=== PATIENT | male | born 1965 ===

== ENCOUNTER 2017-09-29 10:05 | Emergency (ER) | payer MEDICAID, OTHER ==
[2017-09-29 10:18] VITALS: RESP 18; TEMP 97
[2017-09-29] MEDS ORDERED: Naproxen 500 MG TAB PO STA (10:26)
--- NOTE | 2017-09-29 10:58 | ED PDOC ---
HPI: Trauma/Fall - HPI Time Seen by Provider: 09/29/17 10:16 Chief Complaint (Nursing): Trauma Chief Complaint (Provider): Trauma History Per: Patient, EMS History/Exam Limitations: no limitations Onset/Duration Of Symptoms: Hrs (x20) Injury Occurred (Timing): Hours Ago: (20) Additional Complaint(s): 52 y/o male brought to the ED by EMS for evaluation of fall injuries. Patient fell down approximately 20 steps yesterday around 12PM after slipping on cleaning solution. Sustained injury to left eyebrow/frontal region. No loss of consciousness, headaches, shortness of breath, or dizziness. Denies neck pain or back pain. Also sustained injuries to right shoulder, left thigh, left knee , right ankle and foot. PMD: None Past Medical History Reviewed: Historical Data, Nursing Documentation, Vital Signs Vital Signs: Last Vital Signs Temp 97 F L 09/29/17 10:16 Pulse 77 09/29/17 10:16 Resp 18 09/29/17 10:16 BP 129/86 09/29/17 10:16 Pulse Ox 99 09/29/17 10:16 - Medical History PMH: No Chronic Diseases - Surgical History Surgical History: No Surg Hx - Family History Family History: States: Unknown Family Hx - Social History Current smoker - smoking cessation education provided: No Alcohol: None Drugs: Denies - Home Medications Home Medications: Ambulatory Orders Medication Instructions Recorded traMADol [Ultram] 50 mg PO Q8 #10 tab 09/29/17 - Allergies Allergies/Adverse Reactions: Allergies Allergy/AdvReac Type Severity Reaction Status Date / Time Penicillins Allergy RASH Verified 09/29/17 10:16 Review of Systems ROS Statement: Except As Marked, All Systems Reviewed And Found Negative Respiratory: Negative for: Shortness of Breath Musculoskeletal: Positive for: Shoulder Pain (right), Leg Pain (left thigh and knee), Foot Pain (right ankle and foot). Negative for: Neck Pain, Back Pain Neurological: Negative for: Headache, Dizziness, Other (LOC) Physical Exam - Reviewed Nursing Documentation Reviewed: Yes Vital Signs Reviewed: Yes - Physical Exam Appears: Positive for: Non-toxic, No Acute Distress Head Exam: Positive for: NORMOCEPHALIC (with superficial dry laceration above left eyebrow, no palpable fracture). Negative for: ATRAUMATIC Skin: Positive for: Normal Color, Warm, Dry Eye Exam: Positive for: EOMI, Normal appearance, PERRL Neck: Positive for: Normal (with no tenderness or deformity), Painless ROM, Supple Cardiovascular/Chest: Positive for: Regular Rate, Rhythm, Other (chest tenderness to left lower lateral ribs. No ecchymosis or palpable fracture). Negative for: Murmur Respiratory: Positive for: Normal Breath Sounds (with equal breath sounds bilaterally). Negative for: Respiratory Distress Gastrointestinal/Abdominal: Positive for: Normal Exam, Soft. Negative for: Tenderness Back: Positive for: Normal Inspection. Negative for: L CVA Tenderness, R CVA Tenderness, Vertebral Tenderness, Other (deformity) Extremity: Positive for: Normal ROM, Tenderness (right ankle with swelling, tenderness, & ecchymosis at medial malleolus, with tenderness to dorsum of right foot), Other (Right shoulder with ecchymosis anteriorly but full ROM, no deformity. Hips no tenderness or deformity bilaterally. Left femur with small ecchymosis with no tenderness. Right knee with ecchymosis at proximal medial tibia, no deformity or tenderness, full ROM) Neurologic/Psych: Positive for: Alert, Oriented (x3). Negative for: Motor/ Sensory Deficits - ECG O2 Sat by Pulse Oximetry: 99 (RA) Pulse Ox Interpretation: Normal Medical Decision Making Medical Decision Making: Time: 10:26 Initial Plan: --Naproxen 500 mg PO --X-Ray Left Knee --X-Ray Left Ribs & Chest --X-Ray Left Femur --X-Ray Right Foot --X-Ray Right Ankle --X-Ray Right Shoulder --CT Head w/o contrast --Reevaluation X-RAY RESULTS: Time: 11:25 X-Ray Left Knee: FINDINGS: BONES: Normal. No fracture. JOINTS: Normal. No osteoarthritis. SOFT TISSUE: Normal. OTHER FINDINGS: None . IMPRESSION: Normal Bone Xray. Time: 11:29 X-Ray Chest and Left Ribs FINDINGS: LEFT RIBS: No fracture or focal lesion visualized. LUNGS: Clear. PLEURA: No pneumothorax or pleural fluid. CARDIOVASCULAR: Normal sized heart. No pulmonary vascular congestion. OTHER FINDINGS: None. IMPRESSION: Unremarkable radiographs of the chest and left ribs. No left rib fracture. Time: 11:37 X-Ray Right Shoulder: FINDINGS: BONES: Normal. No fracture. JOINTS: Normal. Glenohumeral and acromioclavicular joints preserved. No osteoarthritis. SOFT TISSUES: Normal. OTHER FINDINGS: None. IMPRESSION: Normal radiographs of the right shoulder. Time: 11:40 CT Head w/o contrast FINDINGS: HEMORRHAGE: No intracranial hemorrhage. BRAIN: There are mild chronic microangiopathic changes. There is no mass, mass effect or abnormal extra-axial fluid collection. VENTRICLES: There is mild age-related global parenchymal volume loss and proportionate enlargement of the ventricles and cortical sulci. CALVARIUM: There is no calvarial fracture or extracranial soft tissue swelling. PARANASAL SINUSES: Predominantly clear. MASTOID AIR CELLS: Predominantly clear. There is cerumen in the external auditory canals. OTHER FINDINGS: None. IMPRESSION: No acute intracranial abnormality. Mild chronic microangiopathic changes and mild age-related global parenchymal volume loss. Time: 11:58 X-Ray Right Ankle: FINDINGS: BONES: Nondisplaced posterior calcaneus fracture with associated soft tissue swelling. JOINTS: Normal. No osteoarthritis. Ankle mortise maintained. Talar dome intact SOFT TISSUES: Normal. OTHER FINDINGS: None. IMPRESSION: Nondisplaced posterior calcaneus fracture with associated soft tissue swelling. Time: 11:59 X-Ray Right Foot: FINDINGS: BONES: Nondisplaced posterior calcaneus fracture with associated soft tissue swelling. JOINTS: Normal. SOFT TISSUES: Normal. OTHER FINDINGS: None. IMPRESSION: Nondisplaced posterior calcaneus fracture with associated soft tissue swelling. Time: 12:00 X-Ray Left Femur: FINDINGS: BONES: Normal. No fracture. JOINTS: Normal. No osteoarthritis. SOFT TISSUE: Normal. OTHER FINDINGS: None . IMPRESSION: Normal Bone Xray. Scribe Attestation: Documented by Kayla Foy, acting as a scribe for Conrad Alvarez MD Provider Scribe Attestation: All medical record entries made by the Scribe were at my direction and personally dictated by me. I have reviewed the chart and agree that the record accurately reflects my personal performance of the history, physical exam, medical decision making, and the department course for this patient. I have also personally directed, reviewed, and agree with the discharge instructions and disposition. Disposition - Clinical Impression Clinical Impression: Calcaneal fracture - Patient ED Disposition Is Patient to be Admitted: No Counseled Patient/Family Regarding: Studies Performed, Diagnosis, Need For Followup, Rx Given - Disposition Referrals: Podiatry Clinic [Outside] Disposition: Routine/Home Disposition Time: 13:34 Condition: FAIR Prescriptions: traMADol [Ultram] 50 mg PO Q8 #10 tab Instructions: Calcaneal Fracture (ED) Forms: [employer] (Citizen Of [place])
--- NOTE | 2017-09-29 11:27 | RAD ---
HISTORY: trauma COMPARISON: No prior FINDINGS: BONES: Normal. No fracture. JOINTS: Normal. No osteoarthritis. SOFT TISSUE: Normal. OTHER FINDINGS: None . IMPRESSION: Normal Bone Xray.
--- NOTE | 2017-09-29 11:30 | RAD ---
PROCEDURE: Radiographs of the Chest and Left Ribs. HISTORY: trauma COMPARISON: None available. TECHNIQUE: Frontal radiograph of the chest and multiple oblique radiographs of the left ribs were obtained. FINDINGS: LEFT RIBS: No fracture or focal lesion visualized. LUNGS: Clear. PLEURA: No pneumothorax or pleural fluid. CARDIOVASCULAR: Normal sized heart. No pulmonary vascular congestion. OTHER FINDINGS: None. IMPRESSION: Unremarkable radiographs of the chest and left ribs. No left rib fracture.
[2017-09-29] MEDS ORDERED: Naproxen 500 MG TAB PO ONE (11:36)
--- NOTE | 2017-09-29 11:39 | RAD ---
PROCEDURE: Radiographs of the Right Shoulder HISTORY: trauma COMPARISON: No prior. FINDINGS: BONES: Normal. No fracture. JOINTS: Normal. Glenohumeral and acromioclavicular joints preserved. No osteoarthritis. SOFT TISSUES: Normal. OTHER FINDINGS: None. IMPRESSION: Normal radiographs of the right shoulder.
--- NOTE | 2017-09-29 11:42 | CT ---
PROCEDURE: CT HEAD WITHOUT CONTRAST. HISTORY: r/o bleed COMPARISON: None available. TECHNIQUE: Axial computed tomography images were obtained through the head/brain without intravenous contrast. Radiation dose: Total exam DLP = 844.92 mGy-cm. This CT exam was performed using one or more of the following dose reduction techniques: Automated exposure control, adjustment of the mA and/or kV according to patient size, and/or use of iterative reconstruction technique. FINDINGS: HEMORRHAGE: No intracranial hemorrhage. BRAIN: There are mild chronic microangiopathic changes. There is no mass, mass effect or abnormal extra-axial fluid collection. VENTRICLES: There is mild age-related global parenchymal volume loss and proportionate enlargement of the ventricles and cortical sulci. CALVARIUM: There is no calvarial fracture or extracranial soft tissue swelling. PARANASAL SINUSES: Predominantly clear. MASTOID AIR CELLS: Predominantly clear. There is cerumen in the external auditory canals. OTHER FINDINGS: None. IMPRESSION: No acute intracranial abnormality. Mild chronic microangiopathic changes and mild age-related global parenchymal volume loss.
--- NOTE | 2017-09-29 12:00 | RAD ---
PROCEDURE: Right Ankle Radiographs. HISTORY: trauma COMPARISON: None FINDINGS: BONES: Nondisplaced posterior calcaneus fracture with associated soft tissue swelling. JOINTS: Normal. No osteoarthritis. Ankle mortise maintained. Talar dome intact SOFT TISSUES: Normal. OTHER FINDINGS: None. IMPRESSION: Nondisplaced posterior calcaneus fracture with associated soft tissue swelling.
--- NOTE | 2017-09-29 12:01 | RAD ---
PROCEDURE: Right Foot Radiographs. HISTORY: trauma COMPARISON: None. FINDINGS: BONES: Nondisplaced posterior calcaneus fracture with associated soft tissue swelling. JOINTS: Normal. SOFT TISSUES: Normal. OTHER FINDINGS: None. IMPRESSION: Nondisplaced posterior calcaneus fracture with associated soft tissue swelling.
--- NOTE | 2017-09-29 12:02 | RAD ---
HISTORY: trauma COMPARISON: No prior FINDINGS: BONES: Normal. No fracture. JOINTS: Normal. No osteoarthritis. SOFT TISSUE: Normal. OTHER FINDINGS: None . IMPRESSION: Normal Bone Xray.
[2017-09-29] MEDS ORDERED: Lidocaine 1% Inj (20ml) IJ ONE (14:19)
--- NOTE | 2017-09-29 14:19 | CP.PCM.CON ---
<Rj Escobar - Last Filed: 09/29/17 14:19> History of Present Illness - History of Present Illness History of Present Illness: 52 y.o male with no PMH seen in the ED for right foot pain secondary to trauma. Patient states fall multiple steps down. Past Patient History - Past Social History Alcohol: None Drugs: Denies - MUSCULOSKELETAL/RHEUMATOLOGICAL Other/Comment: rheumatic fever - PSYCHIATRIC Hx Substance Use: No - SURGICAL HISTORY Hx Surgeries: No - ANESTHESIA Hx Anesthesia: No Meds Home Medications: Home Medication List Medication Instructions Recorded Confirmed Type traMADol [Ultram] 50 mg PO Q8 #10 tab 09/29/17 Rx Allergies/Adverse Reactions: Allergies Allergy/AdvReac Type Severity Reaction Status Date / Time Penicillins Allergy RASH Verified 09/29/17 10:16 Results - Vital Signs Recent Vital Signs: Last Vital Signs Temp 97 F L 09/29/17 10:16 Pulse 77 09/29/17 10:16 Resp 18 09/29/17 10:16 BP 129/86 09/29/17 10:16 Pulse Ox 99 09/29/17 13:38 <Conrad Alvarez - Last Filed: 09/29/17 15:06> Results - Vital Signs Recent Vital Signs: Last Vital Signs Temp 97 F L 09/29/17 10:16 Pulse 77 09/29/17 10:16 Resp 18 09/29/17 10:16 BP 129/86 09/29/17 10:16 Pulse Ox 99 09/29/17 13:38 Addendum Addendum: 09/29/17 15:04 No parasthesias or paralysis. Compartment pressure normal. Unlikely that pain is reflective of compartment syndrome Will dc with post splint and f/u podiatry.
[2017-09-29 16:52] VITALS: BP 128/74; PULSE 87; O2SAT 98
--- NOTE | 2017-09-29 17:04 | CT ---
PROCEDURE: CT right lower extremity, right ankle HISTORY: Calcaneal fracture COMPARISON: None TECHNIQUE: 1.25 mm axial acquisition and display. Coronal and sagittal reconstructions. Radiation dosimetry DLP (mGy-cm) 218.71 3D volume rendering images FINDINGS: Comminuted, impacted fracture of the calcaneus, fracture fragments too numerous to count, the major fracture fragments are slightly distracted, at the Achilles tendon insertion on the distracted fragment remains. Air within the plantar soft tissues the tests to the acuity injury. Plantar/sub calcaneal soft tissue swelling evident. No evidence of talotibial or talar calcaneal subluxation. These anatomic relationships are preserved. Visualized tarsal bones and proximal metatarsals are unremarkable without evidence of acute fracture, subluxation or dislocation. IMPRESSION: Comminuted fracture of the calcaneus with associated soft tissue findings described in greater detail above. Distraction of the major fracture fragment noted although its relationship and integrity with Achilles tendon appears to be preserved.
--- NOTE | 2017-09-29 17:29 | CP.PCM.CON ---
History of Present Illness - History of Present Illness History of Present Illness: 52 y.o male with no PMH seen in the ED for right foot pain secondary to trauma. Patient states that he fell multiple steps down after slipping from wet steps yesterday noon. He rates his pain 10/10 at the entire right ankle. He was given pain medications but states that the medication has not helped. He reports throbbing pain as well as numbing and tingling to the right ankle. He states he tried walking earlier today but was unable to. He denies n/v/sob/cp/chills or f. PMH: none PSH: none SH: smokes 2-3 cigarettes per week for 31 years, ~ 6 beers on the weekends, denies illicit drug use FH: mother with depression ALL: penicillin MEDS: none Past Patient History - Past Social History Alcohol: None Drugs: Denies - MUSCULOSKELETAL/RHEUMATOLOGICAL Other/Comment: rheumatic fever - PSYCHIATRIC Hx Substance Use: No - SURGICAL HISTORY Hx Surgeries: No - ANESTHESIA Hx Anesthesia: No Meds Home Medications: Home Medication List Medication Instructions Recorded Confirmed Type traMADol [Ultram] 50 mg PO Q8 #10 tab 09/29/17 Rx Allergies/Adverse Reactions: Allergies Allergy/AdvReac Type Severity Reaction Status Date / Time Penicillins Allergy RASH Verified 09/29/17 10:16 Physical Exam - Constitutional Appears: Well, Non-toxic, No Acute Distress - Extremities Exam Additional comments: Vasc: DP and PT 2/4 bilaterally, CFT <3 seconds x10 digits, temperature gradient WNL, nonpitting edema noted to the right ankle Ortho: unable to MM secondary to guarding, severe pain with palpation to posterior medial calcaneus, pain with palpation to the right ankle, patient unable to perform ankle ROM secondary to guarding, patient able to wiggle toes Neuro: protective and light sensation intact Derm: ecchymosis noted to the medial aspect of the right lower extremity, no open lesions, no clinicial signs of infectino, no pallor - Neurological Exam Neurological exam: Alert, Oriented x3 - Psychiatric Exam Psychiatric exam: Normal Affect, Normal Mood Results - Vital Signs Recent Vital Signs: Last Vital Signs Temp 97 F L 09/29/17 10:16 Pulse 87 09/29/17 16:51 Resp 18 09/29/17 16:51 BP 128/74 09/29/17 16:51 Pulse Ox 98 09/29/17 16:51 Assessment & Plan - Assessment and Plan (Free Text) Assessment: 52 y.o male with no PMH seen in the ED for painful right nondisplaced posterior calcaneal fracture secondary to trauma. Plan: Patient examined and evaluated. Patient's charts, labs, vitals reviewed X-rays results- nondisplaced posterior calcaneus fracture with associated soft tissue finding Strkyer wick cather used to r/o compartment syndrome. Patient signed consent after careful explanation of risks, benefits, complications and alternatives. 20 cc of 1% lidocaine injected in ankle local block fashion to right leg. Wick cather inserted at the posterior medial calcaneal compartment where most of the pain. The results are negative for compartment syndrome. Modified Hill and Posterior splint applied NWB with crutches Instructed on RICE protocol Explained may need surgery in the future for calcaneal fracture F/U in clinic in 1 week in podiatry clinic CT scan ordered. Will evaluate CT results in clinic with Dr. Mai Thank you for the consult. - Date & Time Date: 09/29/17 Time: 04:00
== END 2017-09-29 16:50 | disposition home or self-care (01) ==
LOC: H.ER 10:05
DX: S92.001A Unspecified fracture of right calcaneus, initial encounter for closed fracture (principal); W10.9XXA Fall (on) (from) unspecified stairs and steps, initial encounter

== ENCOUNTER 2017-10-24 08:24 | Emergency (ER) | payer MEDICAID, OTHER ==
[2017-10-24 08:26] VITALS: BP 147/88; PULSE 99; RESP 17; TEMP 98.8; O2SAT 97; BMI 18.8
[2017-10-24] MEDS ORDERED: Liquid Adhesive TOP ONE (08:29)
--- NOTE | 2017-10-24 08:46 | ED PDOC ---
HPI: Skin/Bite Injury Time Seen by Provider: 10/24/17 08:27 Chief Complaint (Nursing): Abnormal Skin Integrity Chief Complaint (Provider): Bleeding to bridge of nose History Per: Patient History/Exam Limitations: no limitations Onset/Duration Of Symptoms: Hrs (morning prior to arrival ) Additional Complaint(s): Fidencio Kumar is a 52 year old male presenting to the ED for an evaluation of bleeding to the left side of the bridge of his nose occurring since this morning. The patient reports being unable to control the bleeding and denies any trauma. PMD: None Provided Past Medical History Reviewed: Historical Data, Nursing Documentation, Vital Signs Vital Signs: Last Vital Signs Temp 98.8 F 10/24/17 08:26 Pulse 99 H 10/24/17 08:26 Resp 17 10/24/17 08:26 BP 147/88 10/24/17 08:26 Pulse Ox 97 10/24/17 08:47 - Medical History PMH: No Chronic Diseases - Surgical History Surgical History: No Surg Hx - Family History Family History: States: No Known Family Hx - Home Medications Home Medications: Ambulatory Orders Medication Instructions Recorded traMADol [Ultram] 50 mg PO Q8 #10 tab 09/29/17 - Allergies Allergies/Adverse Reactions: Allergies Allergy/AdvReac Type Severity Reaction Status Date / Time Penicillins Allergy RASH Verified 09/29/17 10:16 Review of Systems ROS Statement: Except As Marked, All Systems Reviewed And Found Negative Constitutional: Negative for: Other (no trauma) ENT: Positive for: Other (bleeding to the left side of bridge of nose) Physical Exam - Reviewed Nursing Documentation Reviewed: Yes Vital Signs Reviewed: Yes - Physical Exam Appears: Positive for: Non-toxic, No Acute Distress Head Exam: Positive for: ATRAUMATIC, NORMOCEPHALIC Skin: Positive for: Normal Color, Warm, Dry Eye Exam: Positive for: Normal appearance, EOMI ENT: Positive for: Other (punctate wound to left bridge of nose; pressure applied; no active bleeding ) Cardiovascular/Chest: Positive for: Regular Rate, Rhythm, Chest Non Tender Respiratory: Positive for: Normal Breath Sounds. Negative for: Respiratory Distress Neurologic/Psych: Positive for: Alert, Oriented (x3). Negative for: Motor/ Sensory Deficits - ECG O2 Sat by Pulse Oximetry: 97 (RA) Pulse Ox Interpretation: Normal Medical Decision Making Medical Decision Making: Time: 08:27 Impression: Punctate wound to left bridge of nose Plan: * Mastisol Adhesive 0.66 ml TOP Scribe Attestation: Documented by Sharon Mane, acting as a scribe for Conrad Alvarez MD. Provider Scribe Attestation: All medical record entries made by the Scribe were at my direction and personally dictated by me. I have reviewed the chart and agree that the record accurately reflects my personal performance of the history, physical exam, medical decision making, and the department course for this patient. I have also personally directed, reviewed, and agree with the discharge instructions and disposition. Disposition - Clinical Impression Clinical Impression: Laceration - Patient ED Disposition Is Patient to be Admitted: No - Disposition Referrals: [facility] [Outside] Disposition: Routine/Home Disposition Time: 09:10 Condition: FAIR Instructions: Laceration (ED) Forms: [employer] ([place]ian)
== END 2017-10-24 09:11 | disposition home or self-care (01) ==
LOC: H.ER 08:24
DX: S01.20XA Unspecified open wound of nose, initial encounter (principal); X58.XXXA Exposure to other specified factors, initial encounter; Z88.0 Allergy status to penicillin